=== PATIENT | female | born 1940 | race African-American/Black ===

== ENCOUNTER 2016-03-05 15:36 | Inpatient (IN) | payer MEDICARE, BC, MEDICAID ==
[~2016-03-05] VITALS: Ht 175.3 cm; Wt 99.8 kg
[2016-03-05 20:26] VITALS: BP 124/68
[2016-03-05] MEDS ORDERED: LISINOPRIL-HCT1 EAC2 (21:01)
[2016-03-05] MEDS ORDERED: QVAR (21:01)
[2016-03-05] MEDS ORDERED: AMLODIPINE BESY10 MG (21:01)
[2016-03-05] MEDS ORDERED: FOLIC ACID1 M1 (21:01)
[2016-03-05] MEDS ORDERED: METHOTREXATE2.5 MG (21:01)
[2016-03-05] MEDS: Morphine Sulfate 2mg/ml Inj IVP PRN (21:41)
[2016-03-05] MEDS ORDERED: D5 1/2NS w/KCl 20mEq 1,000 ML IV SCH (22:00)
[2016-03-06] VITALS (7 sets, daily range): BP systolic 117–155; BP diastolic 60–93
[2016-03-06] MEDS: Morphine Sulfate 4mg/ml Inj IVP PRN ×3 (02:27→21:31)
[2016-03-06 07:11] LABS: INR 1.1 (0.9-1.1); PROTHROMBIN TIME 10.8 SEC (9.30-11.50)
[2016-03-06 07:23] LABS: BASOPHILS % (AUTO) 0.5 % (0.0-2.0); EOSINOPHILS % (AUTO) 4.4 % (0.0-3.0); LYMPHOCYTES % (AUTO) 9.2 % (20.0-45.0); MEAN CORPUSCULAR HGB CONC 31.1 G/DL (32.0-36.0); MEAN CORPUSCULAR VOLUME 87 FL (80-99); MEAN PLATELET VOLUME 7.9 FL (6.5-10.1); MONOCYTES % (AUTO) 8.3 % (1.0-10.0); NEUTROPHILS % (AUTO) 77.6 % (45.0-75.0); PLATELET COUNT 235 K/UL (150-450); RED BLOOD COUNT 4.53 M/UL (4.70-6.10); RED CELL DISTRIBUTION WIDTH 15.7 % (11.6-14.8); WHITE BLOOD COUNT 11.7 K/UL (4.8-10.8)
[2016-03-06 07:37] LABS: ALANINE AMINOTRANSFERASE 15 U/L (3-41); ALBUMIN/GLOBULIN RATIO 1.1 (1.0-2.7); ANION GAP 12 (5-15); ASPARTATE AMINO TRANSFERASE 22 U/L (5-40); CALCIUM 9.3 mg/dL (8.6-10.2); CARBON DIOXIDE 30 mEQ/L (20-30); CHLORIDE 100 mEQ/L (98-107); CREATININE 0.9 mg/dL (0.7-1.2); HEMOLYSIS 3; MAGNESIUM 1.9 mg/dL (1.7-2.5); PHOSPHORUS 3.8 mg/dL (2.5-4.8); POTASSIUM 3.9 mEQ/L (3.4-4.9); SODIUM 142 mEQ/L (135-145); TOTAL PROTEIN 6.6 g/dL (6.6-8.7)
[2016-03-06] MEDS: Qvar 40mcg Inhaler 6.8 gm INH SCH ×2 (09:07→18:00)
[2016-03-06] MEDS: Heparin 5000 units/ml inj SUBQ SCH ×2 (09:11→21:37)
--- NOTE | 2016-03-06 09:13 | Diagnostic Imaging Report ---
Indications: Chest pain Technique: Portable AP chest Findings: Comparison: None Compromised image quality due to patient body habitus, suboptimal inspiration, lordotic projection limits evaluation. Cardiac silhouette appears enlarged. Pulmonary vasculature within normal limits. No abnormal mediastinal widening. The apparent hemidiaphragm is elevated with overlying right lung base linear densities. Left lung grossly clear. Left costophrenic angle somewhat indistinct; right sharp. Aortic arch calcified. Bilateral glenohumeral joint is narrowed with marginal osteophyte formation. Bilateral humeral heads subluxed cephalad, narrowing the subacromial spaces. IMPRESSION: Limited exam secondary to technical factors described. Basal abnormalities may be missed. Upright PA and lateral chest radiographs with better inspiratory effort and optimal technique recommended for more complete evaluation. Elevation apparent right hemidiaphragm with overlying subsegmental atelectasis versus scarring, nonspecific, acuity indeterminate Apparent cardiomegaly Aortosclerosis Bilateral glenohumeral degenerative arthropathy and chronic rotator cuff insufficiency
[2016-03-06] MEDS: D5 1/2NS w/KCl 20mEq 1,000 ML IV SCH ×2 (09:31→21:32)
[2016-03-06] MEDS: Morphine Sulfate 2mg/ml Inj IVP PRN (09:31)
--- NOTE | 2016-03-06 11:36 | Diagnostic Imaging Report ---
Indications: Right ankle injury, pain Technique: 3 views right ankle Findings: Comparison: None There is oblique fracture of the distal diaphysis of the right fibula above the level of the ankle joint. It demonstrates comminution, displacement, angulation. Overlying soft tissues are swollen. Fine soft tissue detail is obscured by overlying fiberglass splint. No obvious gas or foreign body identified. Small ossific density projects posterior to the distal fibula on lateral view. Tibiotalar joint appears mildly widened laterally. No additional fracture, dislocation, or other acute changes are identified. Multiple small circumscribed calcific densities are present throughout the subcutaneous soft tissues of the intra-aspect of the distal leg, ankle, and dorsal aspect of the foot. IMPRESSION: Fracture of the distal aspect of the right tibia as described, apparently closed Questionable fracture of the tibial posterior malleolus Questionable disruption of ankle joint Subcutaneous soft tissue calcifications may be dystrophic in the setting of chronic inflammatory disease or previous burn, connective tissue disease such as scleroderma, or phleboliths in varices
--- NOTE | 2016-03-06 12:06 | Diagnostic Imaging Report ---
Indications: Right foot injury, pain Technique: 3 views right foot Findings: Comparison: None Suboptimal positioning limits evaluation. Overlying fiberglass splint degrades fine soft tissue and bony detail, further limiting evaluation. No obvious acute fracture, dislocation, joint space widening, surrounding soft tissue swelling or other acute changes are identified. Multiple hammertoe deformities. Dorsal soft tissue calcifications. Small spurs emanate from the plantar and posterior aspects of calcaneus. IMPRESSION: No evidence of acute injury to the right foot, limited as described Hammertoe deformities Calcaneal enthesophytes Nonspecific soft tissue calcifications, chronic in appearance
--- NOTE | 2016-03-06 16:12 | Consultation ---
History of Present Illness General Date patient seen: Mar 06, 2016 Chief Complaint: ankle pain Reason for Consultation: elevated hemidiaphragm and cardiomegaly on cxr Present Illness HPI Patient is 75 yo female who presented to [facility] ED with complaint of ankle pains. Patient subsequently underwent diagnostic tests, including a chest radiograph for cough complaint. The results of the CXR revealed an apparent elevation apparent right hemidiaphragm with overlying subsegmental atelectasis versus scarring, nonspecific, acuity indeterminate. Pulmonary consultation was subsequently requested. Upon evaluation the patient has dimished breath sounds however no appreciable rales or rhonci. Patient says her cough has improved, will observe patient and repeat chest radiograph. Allergies: Coded Allergies: No Known Allergies (Unverified , 03/05/16) Medication History Miscellaneous Medications Amlodipine Besylate* (Amlodipine Besylate*), Unknown Dose, (Reported) Folic Acid (Folic Acid), Unknown Dose, (Reported) Lisinopril/Hydrochlorothiazide 20-25 Mg Tab (Lisinopril-Hctz 20-25 Mg Tab), Unknown Dose, (Reported) Methotrexate Sodium* (Methotrexate*), Unknown Dose, (Reported) [Qvar], Unknown Dose, (Reported) Patient History Healthcare decision maker Resuscitation status Full Code Advanced Directive on File Review of Systems Respiratory: Reports: cough, see HPI, shortness of breath Musculoskeletal: Reports: back pain, joint pain, joint swelling, muscle pain, muscle stiffness Physical Exam General Appearance: no apparent distress Lines, tubes and drains: peripheral HEENT: normocephalic, atraumatic, anicteric, PERRL Neck: non-tender, normal alignment Respiratory/Chest: chest wall non-tender, no respiratory distress, no accessory muscle use, decreased breath sounds Breasts: no masses Cardiovascular/Chest: normal peripheral pulses, normal rate, regular rhythm, no JVD Abdomen: normal bowel sounds, non tender, soft, no organomegaly Genitourinary/Rectal: normal genital exam, normal rectal exam Extremities: normal range of motion, non-tender, normal inspection Skin Exam: normal pigmentation, warm/dry 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, no motor/sensory deficits Last 24 Hour Vital Signs Date Time Temp Pulse Resp B/P Pulse Ox O2 Delivery O2 Flow Rate FiO2 03/06/16 16:09 100.0 93 21 155/68 100 Room Air 03/06/16 13:52 97.6 79 18 131/77 95 Room Air 03/06/16 09:07 85 126/71 03/06/16 09:07 126/71 03/06/16 08:00 97.0 85 20 126/71 94 Nasal Cannula 2.0 03/06/16 04:00 98.2 87 19 152/78 94 Room Air 03/06/16 00:00 99.1 17 117/60 94 Room Air 03/05/16 22:11 97.7 03/05/16 20:26 97.7 75 18 124/68 92 Room Air Intake and Output 03/05/16 03/06/16 18:59 06:59 Intake Total 700 ml Output Total 350 ml Balance 350 ml Intake Oral 700 ml Output Urine Total 350 ml # Voids 1 Laboratory Tests Test 03/06/16 04:45 White Blood Count 11.7 K/UL (4.8-10.8) H Red Blood Count 4.53 M/UL (4.70-6.10) L Hemoglobin 12.2 G/DL (14.2-18.0) L Hematocrit 39.3 % (42.0-52.0) L Mean Corpuscular Volume 87 FL (80-99) Mean Corpuscular Hemoglobin 27.0 PG (27.0-31.0) Mean Corpuscular Hemoglobin Concent 31.1 G/DL (32.0-36.0) L Red Cell Distribution Width 15.7 % (11.6-14.8) H Platelet Count 235 K/UL (150-450) Mean Platelet Volume 7.9 FL (6.5-10.1) Neutrophils (%) (Auto) 77.6 % (45.0-75.0) H Lymphocytes (%) (Auto) 9.2 % (20.0-45.0) L Monocytes (%) (Auto) 8.3 % (1.0-10.0) Eosinophils (%) (Auto) 4.4 % (0.0-3.0) H Basophils (%) (Auto) 0.5 % (0.0-2.0) Prothrombin Time 10.8 SEC (9.30-11.50) Prothromb Time International Ratio 1.1 (0.9-1.1) Activated Partial Thromboplast Time 28 SEC (23-33) Sodium Level 142 mEQ/L (135-145) Potassium Level 3.9 mEQ/L (3.4-4.9) Chloride Level 100 mEQ/L (98-107) Carbon Dioxide Level 30 mEQ/L (20-30) Anion Gap 12 (5-15) Blood Urea Nitrogen 17 mg/dL (7-23) Creatinine 0.9 mg/dL (0.7-1.2) Estimat Glomerular Filtration Rate mL/min (>60) Glucose Level 119 mg/dL (74-106) H Calcium Level 9.3 mg/dL (8.6-10.2) Phosphorus Level 3.8 mg/dL (2.5-4.8) Magnesium Level 1.9 mg/dL (1.7-2.5) Total Bilirubin 0.4 mg/dL (0.0-1.2) Aspartate Amino Transf (AST/SGOT) 22 U/L (5-40) Alanine Aminotransferase (ALT/SGPT) 15 U/L (3-41) Alkaline Phosphatase 62 U/L (40-129) Total Protein 6.6 g/dL (6.6-8.7) Albumin 3.5 g/dL (3.5-5.2) Globulin 3.1 g/dL Albumin/Globulin Ratio 1.1 (1.0-2.7) Height (Feet): 5 Height (Inches): 9.00 Weight (Pounds): 220 Medications Current Medications Medications (Trade) Dose Ordered Sig/Francisco Route PRN Reason Start Time Stop Time Status Last Admin Dose Admin Acetaminophen (Tylenol) 650 mg Q6H PRN ORAL Mild Pain/Temp > 100.5 03/05/16 21:15 04/04/16 21:14 Amlodipine Besylate (Norvasc) 5 mg DAILY ORAL 03/06/16 09:00 04/05/16 08:59 03/06/16 09:07 Beclomethasone Dipropionate (Qvar 40 Inhaler) 1 puff TWICE A DAY INH 03/06/16 09:00 04/05/16 08:59 03/06/16 09:07 Benazepril HCl (Lotensin) 40 mg DAILY ORAL 03/06/16 09:00 04/05/16 08:59 03/06/16 09:07 Dextrose/ Electrolytes (D5 0.45%NS W/ KCl 20mEq) 1,000 ml @ 75 mls/hr [id number] IV 03/06/16 09:00 04/05/16 08:59 03/06/16 09:31 Folic Acid (Folate) 1 mg DAILY ORAL 03/06/16 09:00 04/05/16 08:59 03/06/16 09:07 Heparin Sodium (Porcine) (Heparin 5000 units/ml) 5,000 units EVERY 12 HOURS SUBQ 03/06/16 09:00 04/05/16 08:59 03/06/16 09:11 Ibuprofen 400 mg 400 mg Q6H PRN ORAL For Pain 03/05/16 21:15 04/04/16 21:14 03/06/16 00:20 Morphine Sulfate (Morphine Sulfate) 2 mg Q4H PRN IVP For Pain 03/05/16 21:15 03/12/16 21:14 03/06/16 09:31 Morphine Sulfate (Morphine Sulfate) 4 mg Q4H PRN IVP Severe Pain (Pain Scale 7-10) 03/05/16 21:15 03/12/16 21:14 03/06/16 12:07 Ondansetron HCl (Zofran) 4 mg Q6H PRN IVP Nausea & Vomiting 03/05/16 21:15 04/04/16 21:14 Assessment/Plan Status: stable, progressing Assessment/Plan Assessment/Plan Elevated hemidiaphragm on CXR Dry cough Closed right fibular fracture Right ankle pain Hypertension Fever PLAN O2 therapy Breathing Tx as needed for SOB Aspiration precautions Broad specturm antbx initiated for fever CXR not showing definitive infiltrate Radiograph may be hindered by patient volume status Await blood cultures. OMER LINDSEY Mar 06, 2016 16:11
--- NOTE | 2016-03-06 18:07 | History & Physical ---
History and Physical History & Physicial Dictated for Int Med-Dr Velez no. [id number]. JENI GONZALES Mar 06, 2016 18:07
[2016-03-07 04:03] VITALS: BP 130/68
[2016-03-07] MEDS: Morphine Sulfate 4mg/ml Inj IVP PRN ×4 (04:59→19:14)
--- NOTE | 2016-03-07 05:47 | History and Physical Report ---
DATE OF ADMISSION: 03/06/2016 CHIEF COMPLAINT: The patient is a 75-year-old female, who presents with chief complaint of right ankle pain. HISTORY OF PRESENT ILLNESS: The patient had a slip and fall injury in her bathroom on 03/05/2016. The patient presented to Emergency Room of [facility]. The patient was transferred to [facility] for orthopedic evaluation. The patient was found to have a fracture of the right fibula. This is comminuted and angulated. The patient was admitted for right ankle fracture. PAST MEDICAL HISTORY: Significant for hypertension. PAST SURGICAL HISTORY: The patient denies. CURRENT MEDICATIONS: 1. Amlodipine 10 mg one tablet p.o. daily. 2. Folic acid 1 mg one tablet p.o. daily. 3. Lisinopril/hydrochlorothiazide 20/25 mg one tablet p.o. daily. 4. Methotrexate 2.5 mg q. weekly. ALLERGIES: No known drug allergies. SOCIAL HISTORY: The patient is single. The patient is retired. The patient denies tobacco or alcohol use. REVIEW OF SYSTEMS: Constitutional: The patient denies weight loss or weight gain. The patient denies fevers or chills. HEENT: The patient denies ear or throat pain. Cardiovascular: The patient denies palpitations or chest pain. Chest: The patient denies wheeze or shortness of breath. Abdomen: The patient denies nausea, vomiting, diarrhea, or constipation. Genitourinary: The patient denies dysuria or increased frequency of urination. Neuromuscular: The patient denies seizures or generalized weakness. PHYSICAL EXAMINATION: VITAL SIGNS: Temperature is 98.2 degrees, respirations 19, pulse 87, and blood pressure 152/78. GENERAL: The patient is a well-developed and well-nourished female, in no apparent distress. HEENT: Eyes, pupils are equal and responsive to light and accommodation. Extraocular movements are intact. NECK: Supple. No lymphadenopathy. CHEST: Lungs are clear to auscultation bilaterally without wheezes or rales. CARDIOVASCULAR: Regular rhythm and rate. S1 and S2. No murmurs, rubs, or gallops. ABDOMEN: Soft, nontender, and nondistended. Positive bowel sounds. No evidence of hepatosplenomegaly. Currently, no rebound or guarding. EXTREMITIES: The right ankle is swollen, when compared to the left. There is pain to palpation in the right ankle. Otherwise extremities are without clubbing, cyanosis, or edema. RECTAL/GENITAL: Refused. NEUROLOGICALLY: Cranial nerves II through XII are grossly intact without focal deficits. Motor strength is 5/5 bilaterally. Deep tendon reflexes are 2+ plantar. LABORATORY STUDIES: WBC is 11.7, hemoglobin 12.2, hematocrit 39.3, and platelets 235,000. Sodium is 142, potassium 3.9, chloride 100, CO2 30, BUN 17, creatinine 0.9, and glucose 119. DIAGNOSTIC DATA: An x-ray of the right ankle revealed comminuted angulated fracture of the right distal fibula. There may be a right tibia posterior malleolus fracture as well. A CT scan of the ankle is pending. ASSESSMENT: This is a 75-year-old female with: 1. Fracture of the right fibula. 2. Hypertension. 3. Ankle pain on the right. TREATMENT: 1. Right ankle pain. The patient is currently complaining of pain. The patient is currently on morphine 2 mg and 4 mg q.4 hours p.r.n. 2. Fracture of the right fibula and the patient has a possible fracture of the right tibia as well. An orthopedic consultation will be obtained with Dr. Cale Melton. A CT scan of the ankle is pending to rule out fracture of the right tibia. We will follow recommendations of Orthopedic Surgery. 3. Hypertension. Continue Norvasc and lisinopril/hydrochlorothiazide as above. Reuben Calderón M.D. DR: Landry JOB#: [id number] CC:
--- NOTE | 2016-03-07 07:18 | Consultation ---
DATE OF CONSULTATION: 03/06/2016 CONSULTING PHYSICIAN: Shashank Drummond D.P.M., covering for Tristen Wen D.P.M. REQUESTING PHYSICIAN: Guanaco Velez M.D. REASON FOR CONSULTATION: Right ankle fracture. HISTORY OF PRESENT ILLNESS: This is a 75-year-old female, who states that she fell yesterday morning, while at home. She was taken to [facility], placed in a splint and transferred to [facility]. The patient states that the pain is at the ankle only with attempted movement or manipulation. No current nausea, vomiting, fevers or chills reported. PAST MEDICAL HISTORY: Hypertension, bilateral hip replacement, and right knee placement. ALLERGIES: No known. MEDICATIONS: Pain medications, Tylenol, morphine, and ibuprofen. PHYSICAL EXAMINATION: VITAL SIGNS: On 03/06/2016, temperature was 98.2 degrees, pulse 87, respiratory rate 18, blood pressure 152/78, and O2 saturation 94% on room air. EXTREMITIES: The patient's right ankle is placed in a plantarflexed posterior splint and vascular right ankle with mild edema. No ecchymosis or erythema noted. NEUROLOGICAL: Sensate to light touch. MUSCULOSKELETAL: Pain with palpation, right lateral ankle. No pain with palpation of the medial malleolus. The patient is able to move her toes. DERMATOLOGIC: No open lesions, erythema, or ecchymosis, right ankle or foot. Thickened elongated toenails bilaterally. LABORATORY DATA: White blood count is 11.7, red blood count of 4.53, hemoglobin 12.2, hematocrit 39.3, platelets of 235,000 and neutrophils of 77.6. Chemistries are as follows. Sodium is 142, potassium 3.9, chloride 100, CO2 30, BUN 17, creatinine 0.9, and glucose 119. ASSESSMENT: 1. Right ankle closed and displaced distal fibula fracture. 2. Pain. PLAN: 1. Surgery is planned for Tuesday. Started compression with Darnell wraps and the patient was placed back in the posterior splint. Start elevating the right leg on two pillows. 2. Continue pain management. Shashank Drummond DPM DR: Mireille JOB#: [id number] CC: JEN
[2016-03-07 07:29] LABS: BASOPHILS % (AUTO) 0.9 % (0.0-2.0); LYMPHOCYTES % (AUTO) 10.6 % (20.0-45.0); MEAN CORPUSCULAR HEMOGLOBIN 26.7 PG (27.0-31.0); MEAN CORPUSCULAR HGB CONC 30.7 G/DL (32.0-36.0); MEAN CORPUSCULAR VOLUME 87 FL (80-99); MEAN PLATELET VOLUME 7.5 FL (6.5-10.1); MONOCYTES % (AUTO) 9.1 % (1.0-10.0); NEUTROPHILS % (AUTO) 75.5 % (45.0-75.0); PLATELET COUNT 225 K/UL (150-450); RED BLOOD COUNT 4.47 M/UL (4.70-6.10); RED CELL DISTRIBUTION WIDTH 15.4 % (11.6-14.8); WHITE BLOOD COUNT 12.4 K/UL (4.8-10.8)
[2016-03-07 08:11] LABS: ALANINE AMINOTRANSFERASE 14 U/L (3-33); ANION GAP 11 (5-15); ASPARTATE AMINO TRANSFERASE 20 U/L (5-40); CALCIUM 9.1 mg/dL (8.6-10.2); CARBON DIOXIDE 33 mEQ/L (20-30); CHLORIDE 97 mEQ/L (98-107); CREATININE 0.9 mg/dL (0.5-0.9); HEMOLYSIS 1; MAGNESIUM 1.9 mg/dL (1.7-2.5); POTASSIUM 4.3 mEQ/L (3.4-4.9); SODIUM 141 mEQ/L (135-145); TOTAL PROTEIN 6.8 g/dL (6.6-8.7)
[2016-03-07] MEDS: Qvar 40mcg Inhaler 6.8 gm INH SCH ×2 (08:12→20:04)
[2016-03-07 08:31] LABS: INR 1.1 (0.9-1.1); PROTHROMBIN TIME 11.4 SEC (9.30-11.50)
[2016-03-07 08:42] VITALS: BP 138/77
[2016-03-07] MEDS: Heparin 5000 units/ml inj SUBQ SCH ×2 (09:00→20:02)
[2016-03-07] MEDS: D5 1/2NS w/KCl 20mEq 1,000 ML IV SCH ×2 (11:40→14:58)
[2016-03-07 12:00] VITALS: BP 129/76
--- NOTE | 2016-03-07 13:27 | Podiatric Progress Note ---
Assessment/Plan Patient Elisabeth Tran is a 75 year old female who was admitted on Mar 05, 2016 at 19: 13 with acute closed right ankle fracture Problems: (1) Closed right fibular fracture (2) Right ankle pain Assessment/Plan - Continue compression with kim wrap, immobilization with splint, and elevation on pillows - Surgery is planned for tomorrow at 8am - Anticoagulation is held - NPO at midnight - Placed order for consent Subjective Reason for consult Right ankle fracture Allergies: Coded Allergies: No Known Allergies (Unverified , 03/05/16) Subjective Patient is doing well and states that pain is well managed as long as she does not move the ankle Objective Exam Last 24 Hour Vital Signs Date Time Temp Pulse Resp B/P Pulse Ox O2 Delivery O2 Flow Rate FiO2 03/07/16 12:00 98.1 79 18 129/76 92 Room Air 03/07/16 09:34 98.1 03/07/16 09:00 83 138/77 03/07/16 09:00 138/77 03/07/16 08:42 98.1 83 18 138/77 93 Nasal Cannula 2.0 03/07/16 08:02 85 18 Room Air 21 03/07/16 08:00 83 18 93 Room Air 21 03/07/16 04:03 98.1 89 19 130/68 93 Nasal Cannula 2.0 93 03/06/16 23:53 98.6 90 19 124/61 94 Room Air 03/06/16 22:23 100.0 03/06/16 21:45 100.0 03/06/16 19:38 101.7 104 22 154/93 98 Nasal Cannula 03/06/16 16:09 100.0 93 21 155/68 100 Room Air 03/06/16 13:52 97.6 79 18 131/77 95 Room Air Laboratory Tests Test 03/07/16 04:35 03/07/16 04:55 Prothrombin Time 11.4 SEC (9.30-11.50) Prothromb Time International Ratio 1.1 (0.9-1.1) Activated Partial Thromboplast Time 31 SEC (23-33) Sodium Level 141 mEQ/L (135-145) Potassium Level 4.3 mEQ/L (3.4-4.9) Chloride Level 97 mEQ/L (98-107) L Carbon Dioxide Level 33 mEQ/L (20-30) H Anion Gap 11 (5-15) Blood Urea Nitrogen 13 mg/dL (7-23) Creatinine 0.9 mg/dL (0.5-0.9) Estimat Glomerular Filtration Rate mL/min (>60) Glucose Level 103 mg/dL (74-106) Calcium Level 9.1 mg/dL (8.6-10.2) Phosphorus Level 3.0 mg/dL (2.5-4.8) Magnesium Level 1.9 mg/dL (1.7-2.5) Total Bilirubin 0.5 mg/dL (0.0-1.2) Aspartate Amino Transf (AST/SGOT) 20 U/L (5-40) Alanine Aminotransferase (ALT/SGPT) 14 U/L (3-33) Alkaline Phosphatase 57 U/L (35-104) Total Protein 6.8 g/dL (6.6-8.7) Albumin 3.5 g/dL (3.5-5.2) Globulin 3.3 g/dL Albumin/Globulin Ratio 1.0 (1.0-2.7) White Blood Count 12.4 K/UL (4.8-10.8) H Red Blood Count 4.47 M/UL (4.70-6.10) L Hemoglobin 11.9 G/DL (14.2-18.0) L Hematocrit 38.8 % (42.0-52.0) L Mean Corpuscular Volume 87 FL (80-99) Mean Corpuscular Hemoglobin 26.7 PG (27.0-31.0) L Mean Corpuscular Hemoglobin Concent 30.7 G/DL (32.0-36.0) L Red Cell Distribution Width 15.4 % (11.6-14.8) H Platelet Count 225 K/UL (150-450) Mean Platelet Volume 7.5 FL (6.5-10.1) Neutrophils (%) (Auto) 75.5 % (45.0-75.0) H Lymphocytes (%) (Auto) 10.6 % (20.0-45.0) L Monocytes (%) (Auto) 9.1 % (1.0-10.0) Eosinophils (%) (Auto) 4.0 % (0.0-3.0) H Basophils (%) (Auto) 0.9 % (0.0-2.0) Exam Narrative Right ankle with kim wrap and posterior splint in tact. Elevated on one pillow. Sensate to light touch at toes and able to move them. Shashank Drummond DPM Mar 07, 2016 13:27
[2016-03-07 16:00] VITALS: BP 139/63
[2016-03-07] MEDS: MS Contin 15mg tab ORAL SCH (17:16)
--- NOTE | 2016-03-07 18:30 | Internal Med Progress Note ---
Subjective Date of Service: Mar 07, 2016 Physician Name KaitlynnJeni Attending Physician Guanaco Velez MD Current Medications Medications (Trade) Dose Ordered Sig/Francisco Route PRN Reason Start Time Stop Time Status Last Admin Dose Admin Acetaminophen (Tylenol) 650 mg Q6H PRN ORAL Mild Pain/Temp > 100.5 03/05/16 21:15 04/04/16 21:14 03/06/16 19:39 Amlodipine Besylate (Norvasc) 5 mg DAILY ORAL 03/06/16 09:00 04/05/16 08:59 03/07/16 09:00 Beclomethasone Dipropionate (Qvar 40 Inhaler) 1 puff TWICE A DAY INH 03/06/16 09:00 04/05/16 08:59 03/07/16 08:12 Benazepril HCl (Lotensin) 40 mg DAILY ORAL 03/06/16 09:00 04/05/16 08:59 03/07/16 09:00 Dextrose/ Electrolytes 1,000 ml @ 75 mls/hr [id number] IV 03/06/16 09:00 04/05/16 08:59 03/07/16 14:58 Folic Acid (Folate) 1 mg DAILY ORAL 03/06/16 09:00 04/05/16 08:59 03/07/16 09:00 Heparin Sodium (Porcine) (Heparin 5000 units/ml) 5,000 units EVERY 12 HOURS SUBQ 03/06/16 09:00 04/05/16 08:59 03/06/16 21:37 Ibuprofen 400 mg 400 mg Q6H PRN ORAL For Pain 03/05/16 21:15 04/04/16 21:14 03/06/16 00:20 Levofloxacin (Levaquin) 100 ml @ 100 mls/hr Q24H IVPB 03/07/16 00:00 03/14/16 00:00 03/07/16 01:22 Morphine Sulfate (MS Contin) 15 mg BID ORAL 03/07/16 18:00 03/14/16 17:59 03/07/16 17:16 Morphine Sulfate (Morphine Sulfate) 2 mg Q4H PRN IVP For Pain 03/05/16 21:15 03/12/16 21:14 03/06/16 09:31 Morphine Sulfate (Morphine Sulfate) 4 mg Q4H PRN IVP Severe Pain (Pain Scale 7-10) 03/05/16 21:15 03/12/16 21:14 03/07/16 15:02 Ondansetron HCl (Zofran) 4 mg Q6H PRN IVP Nausea & Vomiting 03/05/16 21:15 04/04/16 21:14 Allergies: Coded Allergies: No Known Allergies (Unverified , 03/05/16) ROS Limited/Unobtainable: No Constitutional: Reports: fever HEENT: Reports: no symptoms Cardiovascular: Reports: no symptoms Respiratory: Reports: no symptoms Gastrointestinal/Abdominal: Reports: no symptoms Genitourinary: Reports: no symptoms Neurologic/Psychiatric: Reports: no symptoms Subjective 75 YO F admitted with right ankle pain; now displaced, comminuted right fibula fracture. Cover for Int Med-Dr Velez. ORIF scheduled 03/08/16 AM. Low grade fever overnight. Objective Last Vital Signs Date Time Temp Pulse Resp B/P Pulse Ox O2 Delivery O2 Flow Rate FiO2 03/07/16 16:00 98.6 89 22 139/63 95 Nasal Cannula 2.0 03/07/16 08:02 21 General Appearance: WD/WN, no apparent distress, alert EENT: PERRL/EOMI, normal ENT inspection, TMs normal Neck: non-tender, normal alignment, supple Cardiovascular: normal peripheral pulses, normal rate, regular rhythm, no gallop/murmur, no JVD Respiratory/Chest: chest wall non-tender, lungs clear, normal breath sounds, no respiratory distress, no accessory muscle use Abdomen: normal bowel sounds, non tender, soft, no organomegaly, no mass Extremities: other - right ankle in splint 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, no motor/sensory deficits Skin: normal pigmentation, warm/dry Laboratory Tests Test 03/07/16 04:35 03/07/16 04:55 Prothrombin Time 11.4 SEC (9.30-11.50) Prothromb Time International Ratio 1.1 (0.9-1.1) Activated Partial Thromboplast Time 31 SEC (23-33) Sodium Level 141 mEQ/L (135-145) Potassium Level 4.3 mEQ/L (3.4-4.9) Chloride Level 97 mEQ/L (98-107) L Carbon Dioxide Level 33 mEQ/L (20-30) H Anion Gap 11 (5-15) Blood Urea Nitrogen 13 mg/dL (7-23) Creatinine 0.9 mg/dL (0.5-0.9) Estimat Glomerular Filtration Rate mL/min (>60) Glucose Level 103 mg/dL (74-106) Calcium Level 9.1 mg/dL (8.6-10.2) Phosphorus Level 3.0 mg/dL (2.5-4.8) Magnesium Level 1.9 mg/dL (1.7-2.5) Total Bilirubin 0.5 mg/dL (0.0-1.2) Aspartate Amino Transf (AST/SGOT) 20 U/L (5-40) Alanine Aminotransferase (ALT/SGPT) 14 U/L (3-33) Alkaline Phosphatase 57 U/L (35-104) Total Protein 6.8 g/dL (6.6-8.7) Albumin 3.5 g/dL (3.5-5.2) Globulin 3.3 g/dL Albumin/Globulin Ratio 1.0 (1.0-2.7) White Blood Count 12.4 K/UL (4.8-10.8) H Red Blood Count 4.47 M/UL (4.70-6.10) L Hemoglobin 11.9 G/DL (14.2-18.0) L Hematocrit 38.8 % (42.0-52.0) L Mean Corpuscular Volume 87 FL (80-99) Mean Corpuscular Hemoglobin 26.7 PG (27.0-31.0) L Mean Corpuscular Hemoglobin Concent 30.7 G/DL (32.0-36.0) L Red Cell Distribution Width 15.4 % (11.6-14.8) H Platelet Count 225 K/UL (150-450) Mean Platelet Volume 7.5 FL (6.5-10.1) Neutrophils (%) (Auto) 75.5 % (45.0-75.0) H Lymphocytes (%) (Auto) 10.6 % (20.0-45.0) L Monocytes (%) (Auto) 9.1 % (1.0-10.0) Eosinophils (%) (Auto) 4.0 % (0.0-3.0) H Basophils (%) (Auto) 0.9 % (0.0-2.0) Intake and Output 03/06/16 03/07/16 19:00 07:00 Intake Total 1035 ml 1577.5 ml Balance 1035 ml 1577.5 ml Intake Oral 360 ml 800 ml IV Total 675 ml 777.5 ml # Voids 2 Assessment/Plan Problem List: (1) Closed right fibular fracture Assessment & Plan: See podiatry note. Await ORIF 03/08/16. (2) Right ankle pain (3) Hypertension Assessment & Plan: Cont benazepril and amlodipine. (4) Fever Assessment & Plan: Await blood cultures. Cont levaquin Status: unchanged JENI GONZALES Mar 07, 2016 18:30
--- NOTE | 2016-03-07 19:11 | Pulmonology Progress Note ---
Assessment/Plan Assessment/Plan Assessment/Plan Assessment/Plan Elevated hemidiaphragm on CXR Dry cough Closed right fibular fracture Right ankle pain Hypertension Fever PLAN Patient says her cough improved O2 therapy Breathing Tx as needed for SOB Aspiration precautions Broad specturm antbx initiated for fever CXR not showing definitive infiltrate Radiograph may be hindered by patient volume status Await blood cultures. Subjective Respiratory: Reports: dry cough Allergies: Coded Allergies: No Known Allergies (Unverified , 03/05/16) Objective Last 24 Hour Vital Signs Date Time Temp Pulse Resp B/P Pulse Ox O2 Delivery O2 Flow Rate FiO2 03/07/16 16:00 98.6 89 22 139/63 95 Nasal Cannula 2.0 03/07/16 12:00 98.1 79 18 129/76 92 Room Air 03/07/16 09:34 98.1 03/07/16 09:00 83 138/77 03/07/16 09:00 138/77 03/07/16 08:42 98.1 83 18 138/77 93 Nasal Cannula 2.0 03/07/16 08:02 85 18 Room Air 21 03/07/16 08:00 83 18 93 Room Air 21 03/07/16 04:03 98.1 89 19 130/68 93 Nasal Cannula 2.0 93 03/06/16 23:53 98.6 90 19 124/61 94 Room Air 03/06/16 22:23 100.0 03/06/16 21:45 100.0 03/06/16 19:38 101.7 104 22 154/93 98 Nasal Cannula Intake and Output 03/06/16 03/07/16 19:00 07:00 Intake Total 1035 ml 1577.5 ml Balance 1035 ml 1577.5 ml Intake Oral 360 ml 800 ml IV Total 675 ml 777.5 ml # Voids 2 General Appearance: no acute distress HEENT: normocephalic, atraumatic, PERRL Respiratory/Chest: chest wall non-tender, decreased breath sounds, accessory muscle use Breasts: no masses Cardiovascular: normal peripheral pulses, normal rate, regular rhythm, no JVD Abdomen: normal bowel sounds, soft, non tender, no organomegaly, non distended Genitourinary: normal external genitalia Extremities: no cyanosis, other - right ankle pain and immobility Skin: no rash, no lesions 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, no motor/sensory deficits Laboratory Tests 03/07/16 04:35: Prothrombin Time 11.4, Prothromb Time International Ratio 1.1, Activated Partial Thromboplast Time 31, Sodium Level 141, Potassium Level 4.3, Chloride Level 97L, Carbon Dioxide Level 33H, Anion Gap 11, Blood Urea Nitrogen 13, Creatinine 0.9, Estimat Glomerular Filtration Rate , Glucose Level 103, Calcium Level 9.1, Phosphorus Level 3.0, Magnesium Level 1.9, Total Bilirubin 0.5, Aspartate Amino Transf (AST/SGOT) 20, Alanine Aminotransferase (ALT/SGPT) 14, Alkaline Phosphatase 57, Total Protein 6.8, Albumin 3.5, Globulin 3.3, Albumin/ Globulin Ratio 1.0 03/07/16 04:55: White Blood Count 12.4H, Red Blood Count 4.47L, Hemoglobin 11.9L, Hematocrit 38.8L, Mean Corpuscular Volume 87, Mean Corpuscular Hemoglobin 26.7L, Mean Corpuscular Hemoglobin Concent 30.7L, Red Cell Distribution Width 15.4H, Platelet Count 225, Mean Platelet Volume 7.5, Neutrophils (%) (Auto) 75.5H, Lymphocytes (%) (Auto) 10.6L, Monocytes (%) (Auto) 9.1, Eosinophils (%) (Auto) 4.0H, Basophils (%) (Auto) 0.9 Current Medications Medications (Trade) Dose Ordered Sig/Francisco Route PRN Reason Start Time Stop Time Status Last Admin Dose Admin Acetaminophen (Tylenol) 650 mg Q6H PRN ORAL Mild Pain/Temp > 100.5 03/05/16 21:15 04/04/16 21:14 03/06/16 19:39 Amlodipine Besylate (Norvasc) 5 mg DAILY ORAL 03/06/16 09:00 04/05/16 08:59 03/07/16 09:00 Beclomethasone Dipropionate (Qvar 40 Inhaler) 1 puff TWICE A DAY INH 03/06/16 09:00 04/05/16 08:59 03/07/16 08:12 Benazepril HCl (Lotensin) 40 mg DAILY ORAL 03/06/16 09:00 04/05/16 08:59 03/07/16 09:00 Dextrose/ Electrolytes 1,000 ml @ 75 mls/hr [id number] IV 03/06/16 09:00 04/05/16 08:59 03/07/16 14:58 Folic Acid (Folate) 1 mg DAILY ORAL 03/06/16 09:00 04/05/16 08:59 03/07/16 09:00 Heparin Sodium (Porcine) (Heparin 5000 units/ml) 5,000 units EVERY 12 HOURS SUBQ 03/06/16 09:00 04/05/16 08:59 03/06/16 21:37 Ibuprofen 400 mg 400 mg Q6H PRN ORAL For Pain 03/05/16 21:15 04/04/16 21:14 03/06/16 00:20 Levofloxacin (Levaquin) 100 ml @ 100 mls/hr Q24H IVPB 03/07/16 00:00 03/14/16 00:00 03/07/16 01:22 Morphine Sulfate (MS Contin) 15 mg BID ORAL 03/07/16 18:00 03/14/16 17:59 03/07/16 17:16 Morphine Sulfate (Morphine Sulfate) 2 mg Q4H PRN IVP For Pain 03/05/16 21:15 03/12/16 21:14 03/06/16 09:31 Morphine Sulfate (Morphine Sulfate) 4 mg Q4H PRN IVP Severe Pain (Pain Scale 7-10) 03/05/16 21:15 03/12/16 21:14 03/07/16 15:02 Ondansetron HCl (Zofran) 4 mg Q6H PRN IVP Nausea & Vomiting 03/05/16 21:15 04/04/16 21:14 OMER LINDSEY Mar 07, 2016 19:11
[2016-03-08 01:08] VITALS: BP 118/50
[2016-03-08] MEDS: Morphine Sulfate 2mg/ml Inj IVP PRN (03:22)
[2016-03-08 04:00] VITALS: BP 127/67
[2016-03-08] MEDS: D5 1/2NS w/KCl 20mEq 1,000 ML IV SCH (05:50)
[2016-03-08] MEDS ORDERED: Bupivacaine w/Epi 0.25% 30ml Vial INJ ONE (07:24)
[2016-03-08] MEDS ORDERED: Bacitracin 50000 Units Vial ONE (07:24)
[2016-03-08] MEDS ORDERED: Ropivacaine 5mg/ml Vial 20ml INJ ONE (07:32)
[2016-03-08 08:00] VITALS: BP 134/64
--- NOTE | 2016-03-08 08:07 | Podiatric Progress Note ---
Assessment/Plan Patient Elisabeth Tran is a 75 year old female who was admitted on Mar 05, 2016 at 19: 13 with right ankle unstable fracture Problems: (1) Closed right fibular fracture (2) Right ankle pain Assessment/Plan - Patient was scheduled for right ankle surgery today at 8:00AM. I received a notice from nursing staff at 7:15AM that patient did not want to continue with the plan for surgery. I had discussed the surgery in detail with the patient and her son yesterday. All questions and concerns were addressed. The consent was signed. I visited the patient this morning to inquire why she did not want to have surgery. Patient states that she was transferred to another unit last night and "something happened" that has made her uncomfortable at the hospital. I asked the patient specifically what the issue was. However, she did not want to divulge what had made her uneasy about having surgery at [facility]. I asked if it would be okay if she or I could speak to her son whom I had an extensive conversation with the day before. However, patient refused. I reminded the patient that the type of fracture that she has is unstable and requires surgical intervention. She states that she understands - Surgery cancelled - Continue to use posterior splint, elevation, non weight bearing on right foot , and pain management - Start discharge planning Subjective Reason for consult Right ankle unstable fracture Allergies: Coded Allergies: No Known Allergies (Unverified , 03/05/16) Subjective Pain is currently well managed. No nausea, vomiting, fevers, or chills. Objective Exam Last 24 Hour Vital Signs Date Time Temp Pulse Resp B/P Pulse Ox O2 Delivery O2 Flow Rate FiO2 03/08/16 04:00 98.6 88 20 127/67 93 Nasal Cannula 2.0 03/08/16 03:52 98.1 03/08/16 01:08 98.1 91 22 118/50 93 Nasal Cannula 2.0 03/08/16 00:18 98.1 03/07/16 19:30 92 Nasal Cannula 2.0 28 03/07/16 19:30 116 20 92 Nasal Cannula 2.0 28 03/07/16 19:30 Nasal Cannula 2.0 28 03/07/16 19:30 114 16 90 Nasal Cannula 2.0 28 03/07/16 16:00 98.6 89 22 139/63 95 Nasal Cannula 2.0 03/07/16 12:00 98.1 79 18 129/76 92 Room Air 03/07/16 09:34 98.1 03/07/16 09:00 83 138/77 03/07/16 09:00 138/77 03/07/16 08:42 98.1 83 18 138/77 93 Nasal Cannula 2.0 03/07/16 08:02 85 18 Room Air 21 03/07/16 08:00 83 18 93 Room Air 21 Microbiology Date/Time Source Procedure Growth Status 03/07/16 00:30 Blood Blood Culture - Preliminary NO GROWTH AFTER 24 HOURS Resulted Exam Narrative Right foot is in posterior splint. Toes are visible. She is sensate at and can move her toes. Shashank Drummond DPM Mar 08, 2016 08:07
[2016-03-08] MEDS: Heparin 5000 units/ml inj SUBQ SCH (09:00)
[2016-03-08] MEDS: MS Contin 15mg tab ORAL SCH (09:00)
--- NOTE | 2016-03-08 09:03 | Diagnostic Imaging Report ---
Right ankle trauma, pain, fractures Technique: Continuous helical CT imaging of the right ankle was performed with automatic exposure control on a Siemens sensation [address] scanner. Axial, coronal, sagittal images reconstructed at 3 mm slice thickness. CTDI volume(s): 15 mGy Total DLP: 297 mGy-cm Findings: Comparison: Right ankle radiographs 03/06/16 There are is a comminuted, oblique fracture involving the distal tibial diaphysis beginning and ending above the level of the ankle joint. Largest butterfly fragment and the main distal fragment demonstrates mild posterior displacement and angulation. There is a longitudinal fracture through the posterior malleolus of the distal tibia with mild comminution. Main distal fracture fragment is displaced proximally. There is a uniformly thin linear lucency traversing the base of the posterior talar process. Mild irregularity is present at the tip of the process. Small linear lucency traverses the lateral corner of the distal tibia. Soft tissue surrounding only structures are swollen and edematous. No associated gas or foreign body. Distal tibiofibular joint is widened anteriorly. There is irregular widening of the tibiotalar joint both posteromedially and anterolaterally. Subtalar joint intact. Impression: Fractures of the distal fibula, tibia posterior malleolus, apparently the lateral corner of the distal tibia, posterior talar process as described, all likely closed Disruptions of the distal tibiofibular and tibiotalar joints, indicating disruption of the anterior distal tibiofibular, anterior talofibular, and probably deltoid ligaments surrounding soft tissue swelling
--- NOTE | 2016-03-08 09:18 | Cardiology Report ---
APPROVED REPORT EXAM: Two-dimensional and M-mode echocardiogram with Doppler and color Doppler. INDICATION Other M-Mode DIMENSIONS IVSd1.5 (0.7-1.1cm)Left Atrium (MM)3.8 (1.6-4.0cm) LVDd4.4 (3.5-5.6cm)Aortic Root2.8 (2.0-3.7cm) PWd1.1 (0.7-1.1cm)Aortic Cusp Exc.1.5 (1.5-2.0cm) LVDs2.8 (2.5-4.0cm) PWs.9 cm Technically difficult study due to poor acoustic windows. Normal left ventricular chamber size, systolic function and wall motion. Left ventricular ejection fraction estimated to be 55-60%. Mild left ventricular hypertrophy. All other cardiac chamber sizes are within normal limits. Mild focal aortic valve sclerosis with adequate cusp excursion. Mildly thickened mitral valve leaflets with normal excursion. Mild mitral annulus and aortic root calcification. Pulmonic valve not well visualized. Normal tricuspid valve structure. IVC dilated at 1.6cm with physiologic collapse. A color flow and spectral Doppler study was performed and revealed: No aortic regurgitation. Trace mitral regurgitation. Mitral diastolic velocities suggest reduced left ventricular relaxation (Grade I). Trace tricuspid regurgitation. Tricuspid systolic velocities suggests peak right ventricular systolic pressure of 14mmHg.
--- NOTE | 2016-03-08 10:14 | Diagnostic Imaging Report ---
Indications: DYSPNEA Technique: Portable AP chest Findings: Comparison: 03/06/16 Cardiomegaly, bilateral interstitial prominence, elevation apparent right hemidiaphragm, subsegmental atelectasis right lung base, bilateral hilar prominence, aortic calcification and elongation, bilateral glenohumeral degenerative arthropathy and chronic rotator cuff insufficiency unchanged. No new abnormality identified. IMPRESSION: No change from one day prior
[2016-03-08 12:00] VITALS: BP 124/82
[2016-03-08] MEDS: Qvar 40mcg Inhaler 6.8 gm INH SCH (12:00)
--- NOTE | 2016-03-08 13:47 | Pulmonology Progress Note ---
Assessment/Plan Assessment/Plan Assessment/Plan Elevated hemidiaphragm on CXR Dry cough Closed right fibular fracture Right ankle pain Hypertension Fever PLAN Repeat CXR shows no change Cough improved No complaints of hemoptysis or SOB O2 therapy Breathing Tx as needed for SOB Aspiration precautions Broad specturm antbx initiated for fever CXR not showing definitive infiltrate Radiograph may be hindered by patient volume status Subjective ROS Limited/Unobtainable: No Respiratory: Reports: dry cough Allergies: Coded Allergies: No Known Allergies (Unverified , 03/05/16) Objective Last 24 Hour Vital Signs Date Time Temp Pulse Resp B/P Pulse Ox O2 Delivery O2 Flow Rate FiO2 03/08/16 12:00 99.1 80 18 124/82 93 Room Air 03/08/16 09:59 98.2 03/08/16 09:50 83 134/64 03/08/16 09:50 134/64 03/08/16 08:00 98.2 83 18 134/64 93 Nasal Cannula 2.0 03/08/16 04:00 98.6 88 20 127/67 93 Nasal Cannula 2.0 03/08/16 03:52 98.1 03/08/16 01:08 98.1 91 22 118/50 93 Nasal Cannula 2.0 03/08/16 00:18 98.1 03/07/16 19:30 92 Nasal Cannula 2.0 28 03/07/16 19:30 116 20 92 Nasal Cannula 2.0 28 03/07/16 19:30 Nasal Cannula 2.0 28 03/07/16 19:30 114 16 90 Nasal Cannula 2.0 28 03/07/16 16:00 98.6 89 22 139/63 95 Nasal Cannula 2.0 Intake and Output 03/07/16 03/08/16 19:00 07:00 Intake Total 1070 ml 715 ml Output Total 980 ml Balance 90 ml 715 ml Intake Oral 620 ml 100 ml IV Total 450 ml 615 ml Output Urine Total 980 ml # Voids 6 2 General Appearance: no acute distress HEENT: normocephalic, atraumatic, PERRL Respiratory/Chest: chest wall non-tender, decreased breath sounds, accessory muscle use Breasts: no masses Cardiovascular: normal peripheral pulses, normal rate, regular rhythm, no JVD Abdomen: normal bowel sounds, soft, non tender, no organomegaly, non distended , no scars Genitourinary: normal external genitalia Skin: no rash, no lesions 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, no motor/sensory deficits Microbiology Date/Time Source Procedure Growth Status 03/07/16 00:30 Blood Blood Culture - Preliminary NO GROWTH AFTER 24 HOURS Resulted 03/07/16 00:25 Blood Blood Culture - Preliminary NO GROWTH AFTER 24 HOURS Resulted Current Medications Medications (Trade) Dose Ordered Sig/Francisco Route PRN Reason Start Time Stop Time Status Last Admin Dose Admin Acetaminophen (Tylenol) 650 mg Q6H PRN ORAL Mild Pain/Temp > 100.5 03/05/16 21:15 04/04/16 21:14 03/07/16 23:19 Amlodipine Besylate (Norvasc) 5 mg DAILY ORAL 03/06/16 09:00 04/05/16 08:59 03/08/16 09:50 Beclomethasone Dipropionate (Qvar 40 Inhaler) 1 puff TWICE A DAY INH 03/06/16 09:00 04/05/16 08:59 03/07/16 20:04 Benazepril HCl (Lotensin) 40 mg DAILY ORAL 03/06/16 09:00 04/05/16 08:59 03/08/16 09:50 Dextrose/ Electrolytes 1,000 ml @ 75 mls/hr [id number] IV 03/06/16 09:00 04/05/16 08:59 03/08/16 05:50 Folic Acid (Folate) 1 mg DAILY ORAL 03/06/16 09:00 04/05/16 08:59 03/08/16 09:00 Heparin Sodium (Porcine) (Heparin 5000 units/ml) 5,000 units EVERY 12 HOURS SUBQ 03/06/16 09:00 04/05/16 08:59 03/08/16 09:00 Ibuprofen 400 mg 400 mg Q6H PRN ORAL For Pain 03/05/16 21:15 04/04/16 21:14 03/06/16 00:20 Levofloxacin (Levaquin) 100 ml @ 100 mls/hr Q24H IVPB 03/07/16 00:00 03/14/16 00:00 03/08/16 02:26 Morphine Sulfate (MS Contin) 15 mg BID ORAL 03/07/16 18:00 03/14/16 17:59 03/08/16 09:00 Morphine Sulfate (Morphine Sulfate) 2 mg Q4H PRN IVP For Pain 03/05/16 21:15 03/12/16 21:14 03/08/16 03:22 Morphine Sulfate (Morphine Sulfate) 4 mg Q4H PRN IVP Severe Pain (Pain Scale 7-10) 03/05/16 21:15 03/12/16 21:14 03/07/16 19:14 Ondansetron HCl (Zofran) 4 mg Q6H PRN IVP Nausea & Vomiting 03/05/16 21:15 04/04/16 21:14 OMER LINDSEY Mar 08, 2016 13:47
[2016-03-08] MEDS: Morphine Sulfate 4mg/ml Inj IVP PRN (15:31)
[2016-03-08 16:02] VITALS: BP 128/73
--- NOTE | 2016-03-08 19:22 | Internal Med Progress Note ---
Subjective Date of Service: Mar 08, 2016 Physician Name Gonzales,Jeni Attending Physician Guanaco Velez MD Current Medications Medications (Trade) Dose Ordered Sig/Francisco Route PRN Reason Start Time Stop Time Status Last Admin Dose Admin Acetaminophen (Tylenol) 650 mg Q6H PRN ORAL Mild Pain/Temp > 100.5 03/05/16 21:15 04/04/16 21:14 03/07/16 23:19 Amlodipine Besylate (Norvasc) 5 mg DAILY ORAL 03/06/16 09:00 04/05/16 08:59 03/08/16 09:50 Beclomethasone Dipropionate (Qvar 40 Inhaler) 1 puff TWICE A DAY INH 03/06/16 09:00 04/05/16 08:59 03/07/16 20:04 Benazepril HCl (Lotensin) 40 mg DAILY ORAL 03/06/16 09:00 04/05/16 08:59 03/08/16 09:50 Dextrose/ Electrolytes 1,000 ml @ 75 mls/hr [id number] IV 03/06/16 09:00 04/05/16 08:59 03/08/16 05:50 Folic Acid (Folate) 1 mg DAILY ORAL 03/06/16 09:00 04/05/16 08:59 03/08/16 09:00 Heparin Sodium (Porcine) (Heparin 5000 units/ml) 5,000 units EVERY 12 HOURS SUBQ 03/06/16 09:00 04/05/16 08:59 03/08/16 09:00 Ibuprofen 400 mg 400 mg Q6H PRN ORAL For Pain 03/05/16 21:15 04/04/16 21:14 03/06/16 00:20 Levofloxacin (Levaquin) 100 ml @ 100 mls/hr Q24H IVPB 03/07/16 00:00 03/14/16 00:00 03/08/16 02:26 Morphine Sulfate (MS Contin) 15 mg Q12HR ORAL 03/08/16 21:00 03/14/16 17:59 Morphine Sulfate (Morphine Sulfate) 2 mg Q4H PRN IVP For Pain 03/05/16 21:15 03/12/16 21:14 03/08/16 03:22 Morphine Sulfate (Morphine Sulfate) 4 mg Q4H PRN IVP Severe Pain (Pain Scale 7-10) 03/05/16 21:15 03/12/16 21:14 03/08/16 15:31 Ondansetron HCl (Zofran) 4 mg Q6H PRN IVP Nausea & Vomiting 03/05/16 21:15 04/04/16 21:14 Allergies: Coded Allergies: No Known Allergies (Unverified , 03/05/16) ROS Limited/Unobtainable: No Constitutional: Reports: no symptoms HEENT: Reports: no symptoms Cardiovascular: Reports: no symptoms Respiratory: Reports: no symptoms Gastrointestinal/Abdominal: Reports: no symptoms Genitourinary: Reports: no symptoms Neurologic/Psychiatric: Reports: no symptoms Subjective 75 YO F admitted with right ankle pain; now displaced, comminuted right fibula fracture. Cover for Int Med-Dr Velez. ORIF scheduled for today 03/08/16 AM was cancelled-see podiatry note. Objective Last Vital Signs Date Time Temp Pulse Resp B/P Pulse Ox O2 Delivery O2 Flow Rate FiO2 03/08/16 16:02 97.9 92 20 128/73 92 Nasal Cannula 2.0 03/08/16 12:00 28 Microbiology Date/Time Source Procedure Growth Status 03/07/16 00:30 Blood Blood Culture - Preliminary NO GROWTH AFTER 24 HOURS Resulted 03/07/16 00:25 Blood Blood Culture - Preliminary NO GROWTH AFTER 24 HOURS Resulted Intake and Output 03/07/16 03/08/16 19:00 07:00 Intake Total 1070 ml 715 ml Output Total 980 ml Balance 90 ml 715 ml Intake Oral 620 ml 100 ml IV Total 450 ml 615 ml Output Urine Total 980 ml # Voids 6 2 Objective General Appearance: WD/WN, no apparent distress, alert EENT: PERRL/EOMI, normal ENT inspection, TMs normal Neck: non-tender, normal alignment, supple Cardiovascular: normal peripheral pulses, normal rate, regular rhythm, no gallop/murmur, no JVD Respiratory/Chest: chest wall non-tender, lungs clear, normal breath sounds, no respiratory distress, no accessory muscle use Abdomen: normal bowel sounds, non tender, soft, no organomegaly, no mass Extremities: other - right ankle in splint 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 ORIF scheduled for today,03/08/16 cancelled-see podiatry note. Attempt to reschedule surgery vs discharge home to follow up at another hospital. (2) Right ankle pain (3) Hypertension Assessment & Plan: Cont benazepril and amlodipine. (4) Fever Assessment & Plan: Await blood cultures. Cont levaquin Status: not improved Assessment/Plan Social work consult. JENI GONZALES Mar 08, 2016 19:22
--- NOTE | 2016-03-08 19:44 | Discharge Summary ---
Discharge Summary Hospital Course Date of Admission Mar 05, 2016 at 19:13 Date of Discharge Mar 08, 2016 at 19:15 Admitting Diagnosis HPI Elisabeth Tran is a 75 year old female who was admitted on Mar 05, 2016 at 19: 13 for Right Ankle Fracture, Slip And Fall Hospital Course Dictated for Int Bryan-Dr Velez no. [id number]. Discharge Discharge Disposition Patient was discharged to Home (01) Discharge Diagnoses: JENI GONZALES Mar 08, 2016 19:44
[2016-03-08] MEDS ORDERED: MS Contin 15mg tab ORAL SCH (21:00)
--- NOTE | 2016-03-08 21:30 | Cardiology Report ---
APPROVED REPORT EKG Measurement Heart [id number] Normal sinus rhythm Incomplete right bundle branch block Nonspecific T wave abnormality Abnormal ECG
--- NOTE | 2016-03-09 04:27 | Discharge Summary ---
DATE OF ADMISSION: 03/05/2016 DATE OF DISCHARGE: 03/08/2016 ADMITTING DIAGNOSES: 1. Right ankle pain. 2. Hypertension. DISCHARGE DIAGNOSES: 1. Right ankle pain. 2. Fracture of the right distal fibula. 3. Hypertension. HOSPITAL COURSE BY PROBLEM LIST: 1. Right ankle pain/fracture of the right distal fibula. An initial x-ray revealed a displaced comminuted fracture of the right distal fibula. A Podiatry consultation was obtained with Dr. Shashank Drummond. An orthopedic surgery consultation was obtained with Dr. Melton. The patient was scheduled for open reduction and internal fixation of the right distal fibula fracture on 03/08/2016. The patient refused surgery at [facility]. The patient wished to be transferred to another facility. The patient was therefore discharged home today, 03/08/2016 for follow up at another hospital for open reduction and internal fixation. 2. Hypertension, the patient remained on amlodipine 5 mg one tablet p.o. daily. Blood pressure is well controlled during the hospitalization. DISCHARGE MEDICATIONS: Please refer to discharge medication list. DISCHARGE INSTRUCTIONS: The patient is discharged home today, 03/08/2016 to follow up at the medical center of her choice. Reuben Calderón M.D. DR: VANESSA JOB#: [id number] CC:
== END 2016-03-08 19:15 | disposition home or self-care (01) | DRG 563 ==
LOC: 4W 19:13 → EDSEX 19:13 → 3E 03-07 23:47
DX: S82.61XA Displaced fracture of lateral malleolus of right fibula, initial encounter for closed fracture (principal); I10 Essential (primary) hypertension; Z96.643 Presence of artificial hip joint, bilateral; Z96.651 Presence of right artificial knee joint; Z53.20 Procedure and treatment not carried out because of patient's decision for unspecified reasons; X58.XXXA Exposure to other specified factors, initial encounter; Y92.89 Other specified places as the place of occurrence of the external cause
CPT/HCPCS: 36415; 71010; 80053; 83735; 84100; 85025; 85610; 85730; 87040; 93005; 93306; 94640; 94760